=== PATIENT | female | born 1955 | race Two or more races ===

== ENCOUNTER 2024-03-07 11:46 | Emergency (ER) | payer MEDICARE, OTHER ==
[~2024-03-07] VITALS: Ht 154.9 cm; Wt 105.5 kg
--- NOTE | 2024-03-07 13:48 | ED.PDOC ---
General HPI Comments 68 y/o F with PMHX of HTN and HLD presents to the ED for CC of abdominal pain. Patient states that she has been experiencing pelvic pain with associated symptoms of groin pain [id number]. Patient comments on, pelvic pain radiating across her lower back into her left leg. Patient relays, that she was seen at urgent care and was told to follow up at the ED for a further evaluation. Patient denies social history. Patient denies hematuria, dysuria, flank pain, numbness or tingling. No other symptoms or modifiers at this time. Chief Complaint: Pelvic Pain Time Seen by MD: 13:10 Primary Care Provider: unknown Reviewed notes: Nurses Notes, Medications, Allergies Allergies: Coded Allergies: NO KNOWN ALLERGIES (Unverified , 03/07/24) Home Meds Active Scripts Pantoprazole Sodium Sesquihydr (Protonix) 40 Mg Tab, 40 MG PO DAILY for 5 Days, #5 TAB Prov:BANDAR BURNHAM MD 03/07/24 Ibuprofen Micronized (MOTRIN TABLET) 600 Mg Tb, 600 MG PO TID PRN for 5 Days, #15 TAB *Black box warning-NSAIDS can increase risk of CA & hypertension, GI irritation, ulceration, bleed, perferation. Do not use post cardiac surgery. Use short duration/lowest effective dose. Prov:BANDAR BURNHAM MD 03/07/24 Mode of Arrival: Ambulatory Inability to void: Moderate Timing: Days Duration: Since onset Prehospital treatment: None Onset: Spontaneous Symptoms: None History of: None Location: None associated signs and symptoms: Back Pain Past Medical History PAST MEDICAL HISTORY: High Lipids, HTN Surgical History: Denies all surgeries [employer] History: Denies all G[employer] Hx Family History Family History: Unknown Social History Smoker: Non-Smoker Alcohol: Denies ETOH Use Drugs: Denies Drug Use Lives In: Home Constitutional: denies: chills, diaphoresis, fatigue, fever, malaise, sweats, weakness, others EENTM: denies: blurred vision, double vision, ear bleeding, ear discharge, ear drainage, ear pain, ear ringing, eye pain, eye redness, hearing loss, mouth pain, mouth swelling, nasal discharge, nose bleeding, nose congestion, nose pain, photophobia, tearing, throat pain, throat swelling, voice changes, others Respiratory: denies: cough, hemoptysis, orthopnea, SOB at rest, shortness of breath, SOB with excertion, stridor, wheezing, others Cardiovascular: denies: chest pain, dizzy spells, diaphoresis, Dyspnea on exertion, edema, irregular heart beat, left arm pain, lightheadedness, palpitations, PND, syncope, others Gastrointestinal: denies: abdomen distended, abdominal pain, blood streaked bowels, constipated, diarrhea, dysphagia, difficulty swallowing, hematemesis, me juliane, nausea, poor appetite, poor fluid intake, rectal bleeding, rectal pain, vomiting, others Genitourinary: reports: others (PELVIC/ GROIN PAIN); denies: abnormal vagina bleeding, burning, dyspareunia, dysuria, flank pain, frequency, hematuria, incontinence, pain, , vagina discharge, urgency Neurological: denies: dizziness, fainting, headache, left sided numbness, left sided weakness, numbness, paresthesia, pre-existing deficit, right sided numbness, right sided weakness, seizure, speech problems, tingling, tremors, weakness, others Musculoskeletal: denies: back pain, gout, joint pain, joint swelling, muscle pain, muscle stiffness, neck pain, others Integumetry: denies: bruises, change in color, change in hair/nails, dryness, laceration, lesions, lumps, rash, wounds, others Allergic/Immunocompromised: denies: Difficulty Healing, Frequent Infections, Hives, Itching, others Hematologic/Lymphatic: denies: anemia, blood clots, easy bleeding, easy bruising, swollen glands, others Endocrine: denies: excessive hunger, excessive sweating, excessive thirst, excessive urination, flushing, intolerance to cold, intolerance to heat, unexplained weight gain, unexplained weight loss, others Psychiatric: denies: anxiety, bipolar disorder, depression, hopeless, panic disorder, schizophrenia, sleepless, suicidal, others All Other Systems: Reviewed and Negative Physical Exam General Appearance: Moderate Distress HEENT: Normal ENT Inspection, Pharynx Normal, TMs Normal Neck: Full Range of Motion, Non-Tender, Normal, Normal Inspection Respiratory: Chest Non-Tender, Lungs Clear, No Accessory Muscle Use, No Respiratory Distress, Normal Breath Sounds Cardiovascular: No Edema, No JVD, No Murmur, No Gallop, Normal Peripheral Pulses, Regular Rate/Rhythm Breast Exam: Deferred Gastrointestinal: No Organomegaly, Non Tender, No Pulsatile Mass, Normal Bowel Sounds, Soft Genitalia: Deferred Pelvic: Deferred Rectal: Deferred Extremities: No calf tenderness, Normal capillary refill, Normal inspection, Normal range of motion, Non-tender, No pedal edema Musculoskeletal : Apperance: Normal Neurologic: Alert, speeder hand II-XII nml as Tested, No Motor Deficits, Normal Affect, Normal Mood, No Sensory Deficits Cerebellar Function: Normal Reflexes: Normal Skin: Dry, Normal Color, Warm Peripheral Pulses: 3+ Radial (R), 3+ Radial (L) Lymphatic: No Adenopathy Was a procedure done? Was a procedure done?: No Differential Diagnosis Kidney stone (Female): Cholelithiasis, Musculoskeletal pain, Pancreatitis, Pyelonephritis, Strain, Urinary obstruction, Urolithiasis X-Ray, Labs, Meds, VS Vital Signs Date Time Temp Pulse Resp B/P (MAP) Pulse Ox O2 Delivery O2 Flow Rate FiO2 03/07/24 14:27 98.2 62 17 144/64 (90) 98 98.2 03/07/24 14:27 62 17 98 Room Air 03/07/24 12:37 98.0 77 17 175/58 (97) 100 Current Medications Medications (Trade) Dose Ordered Sig/Anastasia Route Start Time Stop Time Status Last Admin Ketorolac Tromethamine (Toradol Injection) 60 mg ONCE ONCE IM 03/07/24 14:15 03/07/24 14:16 DC 03/07/24 14:35 Acetaminophen/ Hydrocodone Bitart ([place] 10/325MG Tab) 1 tab ONCE ONCE PO 03/07/24 14:15 03/07/24 14:16 DC 03/07/24 14:35 Patient alert. She was complaining of left hip pain. Chronic degenerative disease. Vitals stable. Answering all questions. Ambulating. X-rays were not ordered because there was no trauma related pain Chronic condition. Was told to get an outpatient MRI. She is not septic. No acute process. No emergency. Patient is stable. Was given Toradol. Was given [place]. Was given prescription of Motrin Keflex antibiotic. Possible urinary tract infection. Explained to the patient. States that she is feeling much better. Satisfied with the treatment plan. No neurological symptoms. Was told to follow up with her primary care physician. Was told to come back if there is any problem. X-ray of the hip does not show any acute process other than degeneration. Time of 1ST Reevaluation: 13:40 Reevaluation 1ST: Improved Patient Education/Counseling: Diagnosis, Treatment Family Education/Counseling: Need For Follow Up Departure 1 Departure Time of Disposition: 14:40 Impression: Primary Impression: Degenerative joint disease (DJD) of hip Qualified Codes: M16.12 - Unilateral primary osteoarthritis, left hip Disposition: HOME / SELF CARE / HOMELESS Condition: Good e-Prescriptions Cephalexin (KEFLEX CAPSULE) 250 Mg Cp 250 MG PO TID for 5 Days, #15 BOTTLE Prov: BANDAR BURNHAM MD 03/07/24 Pantoprazole Sodium Sesquihydr (Protonix) 40 Mg Tab 40 MG PO DAILY for 5 Days, #5 TAB Prov: BANDAR BURNHAM MD 03/07/24 Ibuprofen Micronized (MOTRIN TABLET) 600 Mg Tb 600 MG PO TID PRN for 5 Days, #15 TAB *Black box warning-NSAIDS can increase risk of CA & hypertension, GI irritation, ulceration, bleed, perferation. Do not use post cardiac surgery. Use short duration/lowest effective dose. Prov: BANDAR BURNHAM MD 03/07/24 Discharged With: Self Critical Care Note Critical Care Time?: No Stability Stability form required: No Heart Score Heart Score: Heart Score Response (Comments) Value History N/A 0 EKG N/A 0 Age N/A 0 Risk Factors N/A 0 Troponin N/A 0 Total 0 I personally scribed for BANDAR BURNHAM MD ([email or web address]) on 03/07/24 at 13:48. Electronically submitted by Mi Harris ([email or web address]). BANDAR BURNHAM MD Mar 07, 2024 13:48
[2024-03-07 14:27] VITALS: BP 144/64; TEMP 98.2
[2024-03-07] MEDS: HYDROcodone-ACET 10/325MG TAB PO ONE (14:35)
[2024-03-07] MEDS: KETOROLAC TROMETH 60MG/2ML VIAL IM ONE (14:35)
[2024-03-07] MEDS ORDERED: IBU600T PO (14:41)
[2024-03-07] MEDS ORDERED: PANT40TA2 PO (14:41)
--- NOTE | 2024-03-07 14:59 | DVH ---
CLINICAL INDICATION: osteo TECHNIQUE: XY L HIP 1V XRAY Comparison: None FINDINGS/IMPRESSION: : There is no evidence of acute fracture or dislocation. Moderate degenerative changes of the left hip.
[2024-03-07 15:30] VITALS: PULSE 74; RESP 19; O2SAT 98
[2024-03-07] MEDS ORDERED: CEPH250C PO (15:31)
[2024-03-07 20:44] LABS: Urine Bacteria None Seen /hpf (None Seen)
[2024-03-07 21:26] LABS: Urine Blood Negative /uL (Negative); Urine Clarity Turbid (Clear); Urine Color Yellow (Yellow); Urine Hyaline Cast MOD /lpf (0 - 2); Urine Mucus FEW (None Seen); Urine Protein, UAD 1+ (Negative); Urine Squamous Epithelial Cell MOD /hpf (<5); Urine Urobilinogen Normal (Negative); Urine WBC 29 /HPF (0-5); Urine pH 5.5 (5.0-9.0)
== END 2024-03-07 15:40 | disposition home or self-care (01) ==
LOC: ER 11:46
DX: M16.12 Unilateral primary osteoarthritis, left hip (principal); E78.5 Hyperlipidemia, unspecified; I10 Essential (primary) hypertension; R10.9 Unspecified abdominal pain
CPT/HCPCS: 73501; 81001; 96372; 99284; J1885